=== PATIENT | female | born 2000 | race Caucasian/White ===

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

== ENCOUNTER 2019-05-03 12:32 | Emergency (ER) | payer BC ==
[~2019-05-03] VITALS: Ht 160 cm; Wt 86.2 kg
--- OUTSIDE RECORDS SUMMARY | 2019-05-03 12:38 | XMS REPORT | Continuity of Care Document ---
Author Organization Unknown Address Unknown Phone Unavailable Allergies There is no data. Medications There is no data. Problems Date Dx Coded Attending Type Code Diagnosis Diagnosed By 12/14/2018 EFRAIN QUINN MD, Ot R21 RASH AND OTHER NONSPECIFIC SKIN ERUPTION 12/14/2018 EFRAIN QUINN MD, Ot E11.9 TYPE 2 DIABETES MELLITUS WITHOUT COMPLIC 12/14/2018 EFRAIN QUINN MD, Ot F12.10 CANNABIS ABUSE, UNCOMPLICATED 12/14/2018 EFRAIN QUINN MD Ot F17.210 NICOTINE DEPENDENCE, CIGARETTES, UNCOMPL 12/14/2018 EFRAIN QUINN MD Ot G40.909 EPILEPSY, UNSP, NOT INTRACTABLE, WITHOUT 12/14/2018 EFRAIN QUINN MD, Ot R21 RASH AND OTHER NONSPECIFIC SKIN ERUPTION 12/14/2018 EFRAIN QUINN MD Ot Z20.3 CONTACT WITH AND (SUSPECTED) EXPOSURE TO 12/14/2018 EFRAIN QUINN MD Ot Z87.448 PERSONAL HISTORY OF OTHER DISEASES OF UR 12/17/2018 EFRAIN QUINN MD Ot E11.9 TYPE 2 DIABETES MELLITUS WITHOUT COMPLIC 12/17/2018 EFRAIN QUINN MD Ot F12.10 CANNABIS ABUSE, UNCOMPLICATED 12/17/2018 EFRAIN QUINN MD Ot F17.210 NICOTINE DEPENDENCE, CIGARETTES, UNCOMPL 12/17/2018 EFRAIN QUINN MD Ot G40.909 EPILEPSY, UNSP, NOT INTRACTABLE, WITHOUT 12/17/2018 EFRAIN QUINN MD Ot R21 RASH AND OTHER NONSPECIFIC SKIN ERUPTION 12/17/2018 EFRAIN QUINN MD Ot Z20.3 CONTACT WITH AND (SUSPECTED) EXPOSURE TO 12/17/2018 EFRAIN QUINN MD Ot Z87.448 PERSONAL HISTORY OF OTHER DISEASES OF UR 01/26/2019 EFRAIN QUINN MD, Ot R21 RASH AND OTHER NONSPECIFIC SKIN ERUPTION Procedures There is no data. Results Test Result Range Chlamydia DNA amp probe, urine - 12/14/18 16:45 Chlamydia DNA amp probe, urine Not Detected Not Detected Urine Neisseria gonorrhoeae DNA assay - 12/14/18 16:45 Gonorrhea amp DNA-urine Not Detected Not Detected Encounters ACCT No. Visit Date/Time Discharge Status Pt. Type Provider Facility Loc./Unit Complaint [id number] 10/06/2018 16:12:41 10/06/2018 23:59:59 CLS Outpatient Gerardo Maru [id number] 04/08/2018 15:34:06 04/08/2018 23:59:59 CLS Outpatient Marii De Souza [id number] 04/01/2018 14:50:39 04/01/2018 23:59:59 CLS Outpatient Marii De Souza [id number] 12/07/2017 17:01:24 12/07/2017 23:59:59 CLS Outpatient Tyrel Kim [id number] 11/21/2017 11:14:47 11/21/2017 23:59:59 CLS Outpatient Viet Rocha [id number] 02/10/2017 09:37:56 02/10/2017 23:59:59 CLS Outpatient Dahlia Rome [id number] 12/24/2015 16:53:45 12/24/2015 23:59:59 CLS Outpatient Nikolay Corinne [id number] 12/10/2015 10:08:44 12/10/2015 23:59:59 CLS Outpatient Haseeb Mckeon [id number] 11/29/2015 16:06:25 11/29/2015 23:59:59 CLS Outpatient Jenifer Alvares [id number] 05/07/2015 21:54:04 05/07/2015 23:59:59 CLS Outpatient Praveen Caroline Ada [id number] 12/14/2018 15:05:00 12/14/2018 16:56:00 DIS Emergency EFRAIN QUINN MD [facility] RASH [id number] 12/14/2018 12:13:00 12/14/2018 12:45:00 DIS Outpatient EFRAIN QUINN MD [facility] ER RASH
--- NOTE | 2019-05-03 13:09 | ED Cardiac General ---
History of Present Illness General Chief Complaint: Chest Pain Stated Complaint: CP Nursing Triage Note: Pt ambulates to room 7 with complaints of tightness/pressure in left side of chest rated 6/10. Pt reports this started around 0330 this am and woke her up. Pt states "I think I had a seizure during the night". Pt has a Hx of one previous seizure in Oct 2018. Pt is A&O x4 and denies any SOB at this time. Source: patient Exam Limitations: no limitations History of Present Illness Date Seen by Provider: May 03, 2019 Time Seen by Provider: 12:40 Initial Comments 18-year-old female who presents to the emergency room with complaints of chest pain and tightness on the left side. She reports that this pain started at 3:30 this morning and woke her up. She reports that she did go back to sleep but when she woke she still had the pain. She reports the pain is worse with movement, worse with taking deep breath, and when she coughs it hurts. She denies shortness of breath. NTG SL BATCH TRUCKER: No ASA po BATCH TRUCKER: No Associated Systoms: Chest Pain Allergies and Home Medications Allergies Coded Allergies: No Known Drug Allergies (Unverified , 05/03/19) Patient Home Medication List Home Medication List Reviewed: Yes Review of Systems Review of Systems Constitutional: see HPI; No chills, No fever Respiratory: See HPI, Other (chest wall pain) Cardiovascular: See HPI, Chest Pain All Other Systems Reviewed Negative Unless Noted: Yes Past Ftyrjkl-Cpvlee-Jvcvqv Hx Past Med/Social Hx: Reviewed Nursing Past Med/Soc Hx Patient Social History Alcohol Use: Rarely Uses Number of Drinks Today: Alcohol Beverage of Choice: Beer, Rum, Whiskey, [place], Scotch, Wine Recreational Drug Use: No Smoking Status: Current Everyday Smoker Type Used: Cigarettes 2nd Hand Smoke Exposure: Yes Recent Foreign Travel: No Contact w/Someone Who Travel: No Recent Infectious Disease Expo: No Recent Hopitalizations: No Physical Abuse: No Sexual Abuse: No Mistreated: No Fear: No Seasonal Allergies Seasonal Allergies: No Past Medical History Surgeries: Yes (arm ) Orthopedic Respiratory: No Cardiac: No Neurological: No Seizure Disorder Female Reproductive Disorders: Polycystic Ovarian Dis Genitourinary: No Gastrointestinal: No Musculoskeletal: No Endocrine: No Diabetes, Non-Insulin dep HEENT: No Cancer: No Psychosocial: No Integumentary: Yes Recent Skin Changes Blood Disorders: No Family Medical History Reviewed Nursing Family Hx Physical Exam Vital Signs Vital Signs - First Documented 05/03/19 12:35 Temp 99.9 Pulse 83 Resp 18 B/P (MAP) 136/87 (103) Pulse Ox 99 O2 Delivery Room Air Capillary Refill : Less Than 3 Seconds Height, Weight, BMI Height: 5'3.00" Weight: 190lbs. oz. 86.065013dc; 28.12 BMI Method:Stated General Appearance: No Apparent Distress, WD/WN Respiratory: Lungs Clear, Normal Breath Sounds, No Accessory Muscle Use, No Respiratory Distress, Other (chest wall tenderness) Cardiovascular: Regular Rate, Rhythm, No Edema, No Gallop, No JVD, No Murmur, Normal Peripheral Pulses Gastrointestinal: Normal Bowel Sounds, No Organomegaly, No Pulsatile Mass, Non Tender Extremity: Normal Capillary Refill Neurologic/Psychiatric: Alert, Oriented x3, Normal Mood/Affect Skin: Normal Color, Warm/Dry Progress/Results/Core Measures Results/Orders Lab Results Laboratory Tests Test 05/03/19 12:40 Range/Units Troponin I < 0.028 <0.028 NG/ML Serum Test, Qualitative NEGATIVE NEGATIVE My Orders Orders - RYAN ROSALES Troponin I (05/03/19 12:40) Chest 1 View, Ap/Pa Only (05/03/19 12:40) Ekg Tracing (05/03/19 12:40) Ed Iv/Invasive Line Start (05/03/19 12:40) Monitor-Rhythm Ecg Trace Only (05/03/19 12:40) Hcg,Qualitative Serum (05/03/19 12:44) Ketorolac Injection (Toradol Injection) (05/03/19 13:45) Medications Given in ED Current Medications Medications Dose Ordered Sig/Senait Route Start Time Stop Time Status Last Admin Dose Admin Ketorolac Tromethamine 30 mg ONCE ONCE IVP 05/03/19 13:45 05/03/19 13:46 DC 05/03/19 13:49 30 MG Vital Signs/I&O 05/03/19 05/03/19 12:35 12:51 Temp 99.9 Pulse 83 Resp 18 B/P (MAP) 136/87 (103) Pulse Ox 99 O2 Delivery Room Air Room Air Blood Pressure Mean: 103 Progress Progress Note : Time: 14:02 Progress Note I have seen and evaluated the patient. I've informed her of her laboratory and imaging studies. She is feeling better after the Toradol administration. She agrees with plan of care, plans for discharge, return precautions were given. Initial ECG Impression Date: May 03, 2019 Initial ECG Impression Time: 12:37 Initial ECG Rate: 71 Initial ECG Rhythm: Normal Sinus Initial ECG Intervals: Normal Initial ECG Impression: Normal Departure Impression Primary Impression: Pleurisy Disposition: 01 HOME, SELF-CARE Condition: Stable/Unchanged Departure-Patient Inst. Decision time for Depature: 14:03 Referrals: NO,LOCAL PHYSICIAN (PCP/Family) Primary Care Physician Patient Instructions: LOCAL PHYSICIAN LIST, Pleuritic Chest Pain Add. Discharge Instructions: You may use ibuprofen and Tylenol as directed by the bottle for pain relief. Drink plenty of fluids to stay hydrated. Return back to the emergency room for worsening symptoms or concerns as needed. Follow-up with her primary care provider within 1 week for recheck. All discharge instructions reviewed with patient and/or family. Voiced understanding. RYAN ROSALES May 03, 2019 13:09
[2019-05-03] MEDS ORDERED: KETOROLAC 30 MG/ML VIAL IVP ONE (13:45)
--- NOTE | 2019-05-03 13:48 | Diagnostic Imaging Report ---
Patient History: Severe chest pain. Technique: Single frontal view of the chest Comparison: None FINDINGS: The lung volumes are normal. No focal consolidation is seen. No large pleural effusion or pneumothorax is seen. The cardiomediastinal silhouette is normal in size and contour. No acute osseous abnormality is seen. IMPRESSION: No acute pulmonary abnormality seen. Dictated by: Dictated on workstation # [id number]
[2019-05-03 14:09] VITALS: BP 115/58
== END 2019-05-03 14:09 | disposition home or self-care (01) ==
LOC: EDUNIT# 12:32 → ER 12:33
DX: R09.1 Pleurisy (principal); E11.9 Type 2 diabetes mellitus without complications; G40.909 Epilepsy, unspecified, not intractable, without status epilepticus; F17.210 Nicotine dependence, cigarettes, uncomplicated
CPT/HCPCS: 36415; 71045; 84484; 84703; 93005; 93041; 96374